=== PATIENT | male | born 1960 | race Caucasian/White ===

== ENCOUNTER → 2017-03-11 | Outpatient (CLI) | payer BC ==
--- NOTE | 2017-03-11 15:52 | RAD ---
Indication hemoptysis. PA and lateral views of the chest were obtained. No prior imaging is available. The heart and pulmonary vessels appear normal. There is slight blunting of the right costophrenic angle which may reflect scar or tiny pleural effusion. There is no consolidated pneumonia. An acute finding in the chest is not apparent. Mild degenerative changes are seen in the thoracic spine IMPRESSION: No acute finding seen in the chest
== END | disposition home or self-care (01) ==
LOC: RAD 15:26
PROVIDERS: ATTEND Family Medicine
DX: R04.2 Hemoptysis (principal)
CPT/HCPCS: 71020

== ENCOUNTER 2019-01-12 09:55 | Inpatient (IN) | payer BC ==
[~2019-01-12] VITALS: Ht 182.9 cm; Wt 106.1 kg
[2019-01-12 10:27] LABS: BASO % 1 % (0-3); EOS # 0.1 x10^3/uL (0.0-0.7); EOS % 1 % (0-3); HEMOGLOBIN 16.3 g/dL (13.0-17.5); LYMPH # 1.8 x10^3/uL (1.0-4.8); LYMPH % 24 % (24-48); MEAN CORPUSCULAR HEMOGLOBIN 31 pg (25-35); MEAN CORPUSCULAR HGB CONC 34 g/dL (31-37); MEAN CORPUSCULAR VOLUME 91 fL (79-100); MONO # 0.7 x10^3/uL (0.0-1.1); MONO % 9 % (0-9); NEUT # 4.9 x10^3uL (1.8-7.7); NEUT % 66 % (31-73); PLATELET COUNT 256 x10^3/uL (140-400); RED BLOOD COUNT 5.27 x10^6/uL (4.30-5.70); RED CELL DISTRIBUTION WIDTH 13.7 % (11.5-14.5); WHITE BLOOD COUNT 7.5 x10^3/uL (4.0-11.0)
[2019-01-12 10:41] LABS: CALCIUM 8.8 mg/dL (8.5-10.1); CREATININE 1.2 mg/dL (0.7-1.3); GFR 62.6; POTASSIUM 4.3 mmol/L (3.5-5.1)
[2019-01-12 10:47] LABS: ALBUMIN 3.4 g/dL (3.4-5.0); ALBUMIN/GLOBULIN RATIO 0.9 (1.0-1.7); TOTAL BILIRUBIN 0.4 mg/dL (0.2-1.0); TOTAL PROTEIN 7.3 g/dL (6.4-8.2)
--- NOTE | 2019-01-12 10:53 | RAD ---
EXAM: Chest, 2 views. HISTORY: Chest pain. COMPARISON: 09/04/2018 FINDINGS: 2 views the chest are obtained. There is no infiltrate, pleural effusion or pneumothorax. The heart is normal in size. IMPRESSION: No acute pulmonary finding. Electronically signed by: Diamond Carmona MD (01/12/2019 10:50 AM) [facility]
--- NOTE | 2019-01-12 11:16 | PHYS DOC ---
Past Medical History Past Medical History: Diabetes-Type II Past Surgical History: Other Additional Past Surgical Histo: EMPYEMA Additional Information: 1.5 PPD CIGARS Alcohol Use: None Drug Use: None Adult General Chief Complaint Chief Complaint: CHEST PAIN [facility] HPI Patient is a 58 year old male who presents with this morning came from work at 0530. Patient states about 645 this morning he ate 3 aches, aspirin, one half pound lutz and then went to lay down flat to go to sleep. Patient states that' s when his chest pain began. Patient states he took for full aspirins 325 mg and drink Sprite and began burping which helped his pain. Patient states he began becoming slightly nauseous to drink another Sprite and more and he states the pain went away. Patient is currently pain free and has no symptoms. Review of Systems Review of Systems Constitutional: Denies fever or chills [] Eyes: Denies change in visual acuity, redness, or eye pain [] HENT: Denies nasal congestion or sore throat [] Respiratory: Denies cough or shortness of breath [] Cardiovascular: No additional information not addressed in HPI [] GI: Denies abdominal pain, nausea, vomiting, bloody stools or diarrhea [] : Denies dysuria or hematuria [] Musculoskeletal: Denies back pain or joint pain [] Integument: Denies rash or skin lesions [] Neurologic: Denies headache, focal weakness or sensory changes [] Endocrine: Denies polyuria or polydipsia [] All other systems were reviewed and found to be within normal limits, except as documented in this note. Allergies Allergies Allergies Coded Allergies Type Severity Reaction Last Updated Verified Penicillins Allergy Intermediate 01/12/19 Yes Physical Exam Physical Exam Constitutional: Well developed, well nourished, no acute distress, non-toxic appearance. [] HENT: Normocephalic, atraumatic, bilateral external ears normal, oropharynx moist, no oral exudates, nose normal. [] Eyes: PERRLA, EOMI, conjunctiva normal, no discharge. [] Neck: Normal range of motion, no tenderness, supple, no stridor. [] Cardiovascular:Heart rate regular rhythm, no murmur [] Lungs & Thorax: Bilateral breath sounds clear to auscultation [] Abdomen: Bowel sounds normal, soft, no tenderness, no masses, no pulsatile masses. [] Skin: Warm, dry, no erythema, no rash. [] Back: No tenderness, no CVA tenderness. [] Extremities: No tenderness, no cyanosis, no clubbing, ROM intact, no edema. [] Neurologic: Alert and oriented X 3, normal motor function, normal sensory function, no focal deficits noted. [] Psychologic: Affect normal, judgement normal, mood normal. [] Current Patient Data Vital Signs Vital Signs Date Time Temp Pulse Resp B/P (MAP) Pulse Ox O2 Delivery O2 Flow Rate FiO2 01/12/19 11:36 68 17 134/85 (101) 95 Room Air 01/12/19 10:11 98.0 98.0 Lab Values Laboratory Tests Test 01/12/19 10:20 White Blood Count 7.5 x10^3/uL (4.0-11.0) Red Blood Count 5.27 x10^6/uL (4.30-5.70) Hemoglobin 16.3 g/dL (13.0-17.5) Hematocrit 48.0 % (39.0-53.0) Mean Corpuscular Volume 91 fL (79-100) Mean Corpuscular Hemoglobin 31 pg (25-35) Mean Corpuscular Hemoglobin Concent 34 g/dL (31-37) Red Cell Distribution Width 13.7 % (11.5-14.5) Platelet Count 256 x10^3/uL (140-400) Neutrophils (%) (Auto) 66 % (31-73) Lymphocytes (%) (Auto) 24 % (24-48) Monocytes (%) (Auto) 9 % (0-9) Eosinophils (%) (Auto) 1 % (0-3) Basophils (%) (Auto) 1 % (0-3) Neutrophils # (Auto) 4.9 x10^3uL (1.8-7.7) Lymphocytes # (Auto) 1.8 x10^3/uL (1.0-4.8) Monocytes # (Auto) 0.7 x10^3/uL (0.0-1.1) Eosinophils # (Auto) 0.1 x10^3/uL (0.0-0.7) Basophils # (Auto) 0.0 x10^3/uL (0.0-0.2) Sodium Level 139 mmol/L (136-145) Potassium Level 4.3 mmol/L (3.5-5.1) Chloride Level 100 mmol/L (98-107) Carbon Dioxide Level 26 mmol/L (21-32) Anion Gap 13 (6-14) Blood Urea Nitrogen 17 mg/dL (8-26) Creatinine 1.2 mg/dL (0.7-1.3) Estimated GFR (Cockcroft-Gault) 62.6 BUN/Creatinine Ratio 14 (6-20) Glucose Level 316 mg/dL (70-99) H Calcium Level 8.8 mg/dL (8.5-10.1) Total Bilirubin 0.4 mg/dL (0.2-1.0) Aspartate Amino Transferase (AST) 16 U/L (15-37) Alanine Aminotransferase (ALT) 37 U/L (16-63) Alkaline Phosphatase 94 U/L (46-116) Troponin I Quantitative 0.185 ng/mL (0.000-0.055) ZU-Vvm-W-Type Natriuretic Peptide 56 pg/mL (0-124) Total Protein 7.3 g/dL (6.4-8.2) Albumin 3.4 g/dL (3.4-5.0) Albumin/Globulin Ratio 0.9 (1.0-1.7) L Lipase 82 U/L (73-393) Laboratory Tests 01/12/19 10:20 Laboratory Tests 01/12/19 10:20 EKG EKG Sinus rhythm and no STEMI. Patient has deep past T waves in 4,5, 6 lead. Interpretation Time: [address] Paredes Radiology/Procedures Radiology/Procedures Chest xray Impressions: [facility] [address] [place] [address] IMAGING REPORT Signed PATIENT: JUSTEN LANTIGUA ACCOUNT: [id number] : 1960 LOCATION: ER AGE: 58 SEX: M EXAM STATUS: REG ER ORD. PHYSICIAN: MARGARITO MARQUEZ APRN REASON: chest pain PROCEDURE: CHEST PA & LATERAL EXAM: Chest, 2 views. HISTORY: Chest pain. COMPARISON: 09/04/2018 FINDINGS: 2 views the chest are obtained. There is no infiltrate, pleural effusion or pneumothorax. The heart is normal in size. IMPRESSION: No acute pulmonary finding. Electronically signed by: Diamond Allen MD (01/12/2019 10:50 AM) [facility] DICTATED and SIGNED BY: DIAMOND ALLEN MD DATE: 01/12/19 1049 Course & Med Decision Making Course & Med Decision Making Patient is a 58 year old male who presents with this morning came from work at 0530. Patient states about 645 this morning he ate 3 aches, aspirin, one half pound lutz and then went to lay down flat to go to sleep. Patient states that' s when his chest pain began. Patient states he took for full aspirins 325 mg and drink Sprite and began burping which helped his pain. Patient states he began becoming slightly nauseous to drink another Sprite and more and he states the pain went away. Patient is currently pain free and has no symptoms. EKG shows sinus rhythm and no STEMI but he does have inverted T waves in lead 4 , 5 and 6. Patient's history is a empyema 20 years ago, high cholesterol, diabetic. Patient states he's also had a blood clot and his leg before of which he's had constant bilateral edema and his pedal's and ankles since then and that was 6 years ago. I would say 2+ edema bilateral pedal edema. Alert and oriented. Skin pink warm and dry. Mucous membranes are moist. Patient is having no chest pain, nausea, vomiting, dizziness, shortness of air. He states his smokes half pack of cigarette was day. Lungs are clear to auscultation in all lobes. Heart rate is regular. Patient does have an elevated troponin of 0.185. Abdomen is soft and nontender. Patient is ambulatory with a steady gait. 1110: I have spoken to a family nurse practitioner of Dr. Lyle states week ago where the patient and she states to keep the patient nothing by mouth for a simple procedure later today and she states they will come and see the patient. I have also spoken to Dr England and Patient will be admitted for chest pain and elevated troponin. Dragon Disclaimer Dragon Disclaimer This electronic medical record was generated, in whole or in part, using a voice recognition dictation system. Departure Departure Impression: Primary Impression: Chest pain Disposition: ADMITTED INPATIENT Admitting Physician: Jose Ramon Aguila Condition: STABLE Referrals: Ute AGUILA MD (PCP) Problem Qualifiers Primary Impression: Chest pain Chest pain type: unspecified Qualified Codes: R07.9 - Chest pain, unspecified MARGARITO MARQUEZ ROUTE INSPECTOR Jan 12, 2019 11:15
[2019-01-12] MEDS ORDERED: IV NORMAL SALINE 1000ML BAG 1,000 ML IV SCH (11:41)
[2019-01-12] MEDS ORDERED: ONDANSETRON PF 4 MG/2 ML VIAL. IV PRN (11:45)
[2019-01-12] MEDS ORDERED: NITROGLYCERIN SUBLINGUAL 0.4 MG BOTTLE OF 25. SL PRN ×2 (11:45→18:15)
[2019-01-12] MEDS ORDERED: fentaNYL PF VIAL 100 MCG/2 ML VIAL IV PRN (11:45)
[2019-01-12 12:12] LABS: PROTHROMBIN TIME PATIENT 12.8 SEC (11.7-14.0)
[2019-01-12 12:15] LABS: BILIRUBIN,URINE NEGATIVE (NEG); CLARITY,URINE CLOUDY; COLOR,URINE YELLOW; NITRITE,URINE NEGATIVE (NEG); PROTEIN,URINE NEGATIVE (NEG-TRACE); UROBILINOGEN,URINE 0.2 mg/dL (0.2 mg/dL)
[2019-01-12 12:19] LABS: BACTERIA,URINE FEW /HPF (0-FEW); RBC,URINE OCC /HPF (0-2); SQUAMOUS EPITHELIAL CELL,UR FEW /LPF; WBC,URINE OCC /HPF (0-4)
[2019-01-12 12:33] LABS: BARBITURATES NEG (NEG); BENZODIAZEPINES NEG (NEG); CANNABINOIDS NEG (NEG); COCAINE NEG (NEG); METHADONE NEG (NEG); OPIATES NEG (NEG); PHENCYCLIDINE NEG (NEG)
[2019-01-12 12:34] LABS: AMPHETAMINE/METHAMPHETAMINE NEG (NEG)
--- NOTE | 2019-01-12 13:02 | PDOC2 ---
TOMMIEIRVING GAMBOA JOSELINE 01/12/19 1302: CARDIAC CONSULT DATE OF CONSULT Date of Consult DATE: 01/12/19 TIME: 12:54 REASON FOR CONSULT Reason for Consult: Chest pain REFERRING PHYSICIAN Referring Physician: Armida Cochran APRN SOURCE Source: Chart review, Patient HISTORY OF PRESENT ILLNESS HISTORY OF PRESENT ILLNESS This is a 58 yo male who presented secondary to chest pain. Patient works on a newspaper route. Came home this morning and had a large breakfast around 6:15. Around 7:30, began have sharp pain in his central chest radiating upward. [place] like GERD; had a Sprite and belched a couple of times, which seemed to improved the pain. Took an ASA and laid down. Pain returned so he had another Sprite and felt slightly better. Went ahead and took another full ASA. [place] slightly nauseated and also noticed some left shoulder pain. Although he thought this was GERD, he decided to come to the ED for further evaluation and treatment as he had never had GERD like this before. Pain resolved following third full ASA. Troponin noted to be mildly elevated upon arrival, which prompted this consult. PAST MEDICAL HISTORY Cardiovascular: Hyperlipidemia Pulmonary: Pneumonia, Other (empyema ) CENTRAL NERVOUS SYSTEM: Other (no pertinent hx) GI: GERD Heme/Onc: Other (DVT) Hepatobiliary: No pertinent hx Psych: No pertinent hx Musculoskeletal: Osteoarthritis Rheumatologic: No pertinent hx Infectious disease: No pertinent hx ENT: No pertinent hx Renal/: No pertinent hx Endocrine: Diabetes Dermatology: No pertinent hx PAST SURGICAL HISTORY Past Surgical History: Tonsillectomy, Other FAMILY HISTORY Family History: Diabetes, Other (AFIB) SOCIAL HISTORY Smoke: 1 pack per day ALCOHOL: none Drugs: None Lives: with Family ALLERGIES ALLERGIES: Coded Allergies: Penicillins (Verified Allergy, Intermediate, 01/12/19) ROS Review of System 14 point ROS conducted with pertinent positives noted above in HPI. PHYSICAL EXAM General: Alert, Oriented X3, Cooperative, No acute distress HEENT: Atraumatic, Mucous membr. moist/pink Lungs: Clear to auscultation, Normal air movement Heart: Regular rate, Normal S1, Normal S2 Abdomen: Soft, No tenderness Extremities: No edema, Normal pulses Neuro: Normal speech, Sensation intact Psych/Mental Status: Mental status NL, Mood NL MUSCULOSKELETAL: No deformity VITALS VITALS Vital Signs Date Time Temp Pulse Resp B/P (MAP) Pulse Ox O2 Delivery O2 Flow Rate FiO2 01/12/19 11:36 68 17 134/85 (101) 95 Room Air 01/12/19 10:11 98.0 98.0 LABS Lab: Laboratory Tests Test 01/12/19 10:20 01/12/19 12:00 01/12/19 12:03 White Blood Count 7.5 x10^3/uL (4.0-11.0) Red Blood Count 5.27 x10^6/uL (4.30-5.70) Hemoglobin 16.3 g/dL (13.0-17.5) Hematocrit 48.0 % (39.0-53.0) Mean Corpuscular Volume 91 fL (79-100) Mean Corpuscular Hemoglobin 31 pg (25-35) Mean Corpuscular Hemoglobin Concent 34 g/dL (31-37) Red Cell Distribution Width 13.7 % (11.5-14.5) Platelet Count 256 x10^3/uL (140-400) Neutrophils (%) (Auto) 66 % (31-73) Lymphocytes (%) (Auto) 24 % (24-48) Monocytes (%) (Auto) 9 % (0-9) Eosinophils (%) (Auto) 1 % (0-3) Basophils (%) (Auto) 1 % (0-3) Neutrophils # (Auto) 4.9 x10^3uL (1.8-7.7) Lymphocytes # (Auto) 1.8 x10^3/uL (1.0-4.8) Monocytes # (Auto) 0.7 x10^3/uL (0.0-1.1) Eosinophils # (Auto) 0.1 x10^3/uL (0.0-0.7) Basophils # (Auto) 0.0 x10^3/uL (0.0-0.2) Sodium Level 139 mmol/L (136-145) Potassium Level 4.3 mmol/L (3.5-5.1) Chloride Level 100 mmol/L (98-107) Carbon Dioxide Level 26 mmol/L (21-32) Anion Gap 13 (6-14) Blood Urea Nitrogen 17 mg/dL (8-26) Creatinine 1.2 mg/dL (0.7-1.3) Estimated GFR (Cockcroft-Gault) 62.6 BUN/Creatinine Ratio 14 (6-20) Glucose Level 316 mg/dL (70-99) Calcium Level 8.8 mg/dL (8.5-10.1) Total Bilirubin 0.4 mg/dL (0.2-1.0) Aspartate Amino Transf (AST/SGOT) 16 U/L (15-37) Alanine Aminotransferase (ALT/SGPT) 37 U/L (16-63) Alkaline Phosphatase 94 U/L (46-116) Troponin I Quantitative 0.185 ng/mL (0.000-0.055) WY-Xoe-R-Type Natriuretic Peptide 56 pg/mL (0-124) Total Protein 7.3 g/dL (6.4-8.2) Albumin 3.4 g/dL (3.4-5.0) Albumin/Globulin Ratio 0.9 (1.0-1.7) Lipase 82 U/L (73-393) Prothrombin Time 12.8 SEC (11.7-14.0) Prothromb Time International Ratio 1.0 (0.8-1.1) Urine Collection Type Unknown Urine Color Yellow Urine Clarity Cloudy Urine pH 5.0 Urine Specific [place] 1.015 Urine Protein Negative mg/dL (NEG-TRACE) Urine Glucose (UA) >=1000 mg/dL (NEG) Urine Ketones (Stick) Negative mg/dL (NEG) Urine Blood Negative (NEG) Urine Nitrite Negative (NEG) Urine Bilirubin Negative (NEG) Urine Urobilinogen Dipstick 0.2 mg/dL (0.2 mg/dL) Urine Leukocyte Esterase Negative (NEG) Urine RBC Occ /HPF (0-2) Urine WBC Occ /HPF (0-4) Urine Squamous Epithelial Cells Few /LPF Urine Bacteria Few /HPF (0-FEW) Urine Mucus Slight /LPF Urine Opiates Screen Neg (NEG) Urine Methadone Screen Neg (NEG) Urine Barbiturates Neg (NEG) Urine Phencyclidine Screen Neg (NEG) Urine Amphetamine/Methamphetamine Neg (NEG) Urine Benzodiazepines Screen Neg (NEG) Urine Cocaine Screen Neg (NEG) Urine Cannabinoids Screen Neg (NEG) Urine Ethyl Alcohol Neg (NEG) ASSESSMENT/PLAN ASSESSMENT/PLAN 1. Chest pain, mixed features 2. NSTEMI; initial trop 0.185. EKG notable for t-wave inversion, which patient reports this as chronic 3. Diabetes, II; as per PCP 4. Hyperlipidemia 5. Tobaccoism; discussed/encouraged cessation 6. H/o DVT Recommendations lipid panel Echo to assess LV systolic function Add ASA, low-dose BB Trend trop If further elevation in troponin is noted, recommend cardiac cath with possible PCI. R/b/a discussed with patient and he is agreeable. DEVIN HOUSE MD 01/12/19 1636: CARDIAC CONSULT ASSESSMENT/PLAN ASSESSMENT/PLAN Patient seen and examined. Agree with DIAGNOSTIC ASSISTANT's assessment and plan. Chest pain with mixed features but troponin level slightly elevated consistent with non-STEMI Plan for cardiac catheterization for definitive evaluation secondary to his multiple cardiovascular risk factors Importance of smoking cessation emphasized Thank you for your consultation IRVING REILLY APRN Jan 12, 2019 13:02 DEVIN HOUSE MD Jan 12, 2019 16:36
[2019-01-12] MEDS ORDERED: ENOXAPARIN 40 MG/0.4 ML SYRINGE. SQ SCH (15:00)
--- NOTE | 2019-01-12 15:09 | HP ---
ADMIT DATE: 01/12/2019 CHIEF COMPLAINT: Chest pain. HISTORY OF PRESENT ILLNESS AND HOSPITAL COURSE: This patient is a 58-year-old male with a history of uncontrolled diabetes, high cholesterol and hypertension. States that on the morning of admission, he had a large breakfast including multiple pieces of Friend and laid down and felt he was having heartburn and chest pain. He drank some 7up to help with gaseous pains in his stomach and this improved his pain a little bit. He took 2 aspirin because his pain continued and again drank some 7up. He took 2 more aspirin soon after that and called 911 due to progressive and continued chest pains. During driving to the hospital on ambulance, the patient's pain completely abated and the patient was asymptomatic during ER evaluation. ER evaluation showed slightly increased troponins and changes in EKG consistent with flipped T waves in the lateral leads. Due to these findings, plans for admission were made. During early admission, prior to the patient getting to the floor, second troponin was done and showed increase in troponin and Cardiology was consulted and elected to take the patient to cardiac cath, which is pending at the time of this dictation. PAST MEDICAL HISTORY: Significant for: 1. Hypertension. 2. High cholesterol. 3. COPD. 4. Type 2 diabetes, out of control with last hemoglobin A1c in 03/2018 of 11.4 and in 01/2017 of 10. 5. The patient also had a history of DVT in 2013. PAST SURGICAL HISTORY: Significant for tonsillectomy as a child and decortication for empyema in 1997. FAMILY HISTORY: His mother is alive with heart disease, sarcoidosis, AFib and breast cancer. His father is with lung cancer, hypertension, hypothyroidism. His maternal grandmother with colon cancer. He had a maternal grandfather who with an [place]. SOCIAL HISTORY: He is a current smoker, smokes mostly cigars on a daily basis, but also smokes up to 11 cigarettes per day. The patient is , has 3 sons and grandchildren. He lives with his spouse. He is a truck driver heavy. ALLERGIES: THE PATIENT EXHIBITS ALLERGIES TO PENICILLIN AND CLINDAMYCIN. REVIEW OF SYSTEMS: Prior to this episode of chest pain were benign. He had no nausea, vomiting. No chest congestion, cough, recent weight loss or weight gain, night sweats or shortness of breath. Current chest pains were substernal without radiation, diaphoresis, nausea, vomiting or shortness of breath. PHYSICAL EXAMINATION: GENERAL: This is a well-nourished, well-developed male, in no apparent distress. On my exam, he is alert and oriented x 3. HEENT: Reveals poor dentition. NECK: Supple without JVD or bruits. CARDIAC: Regular rate and rhythm. LUNGS: Clear. ABDOMEN: Soft, nontender without masses. EXTREMITIES: 2+ pulses without significant edema. NEUROLOGIC: Entirely intact. ASSESSMENT: 1. Non-ST elevated myocardial infarction. 2. Type 2 diabetes, out of control. PLAN: To proceed with admission to the hospital and Cardiology consultation, going directly to cardiac catheterization and continued medical management. ZAY SALAS MD DR: SUNI/amy JOB#: [id number] / [id number]
[2019-01-12] MEDS ORDERED: IODIXANOL 320 MG/ML 100 ML VIAL. ONE ×2 (16:09→17:04)
[2019-01-12] MEDS ORDERED: LIDOCAINE 1% PF 2 ML VIAL. ONE (16:09)
--- NOTE | 2019-01-12 16:09 | EKG ---
[facility] [address] [place] [address] Test Date: 2019-01-12 Test Time: 10:10:25 Pat Name: JUSTEN LANTIGUA Department: Room: 205 1 Gender: M Lacquer Machine Feeder: : 1960 Requested By: MARGARITO MARQUEZ Order Number: [id number] Reading MD: Ed Franco MD Measurements Intervals [place] Rate: 85 P: 25 IA: 164 QRS: -25 QRSD: 88 T: -142 QT: 386 QTc: 460 Interpretive Statements SINUS RHYTHM LATERAL TWI Electronically Signed On 01-13-2019 7:02:56 LEACH RUNNER by Ed Franco MD
[2019-01-12 16:19] VITALS: BP 132/90
[2019-01-12] MEDS ORDERED: MIDAZOLAM HCL/PF 2 MG/2 ML VIAL. ONE (16:27)
[2019-01-12] MEDS ORDERED: VERAPAMIL 5 MG/2 ML VIAL. ONE (16:27)
[2019-01-12] MEDS ORDERED: fentaNYL PF VIAL 100 MCG/2 ML VIAL ONE (16:27)
[2019-01-12] MEDS ORDERED: HEPARIN for IV BOLUS 10,000 UNIT/10 ML VIAL. ONE (16:27)
[2019-01-12] MEDS ORDERED: NITROGLYCERIN 200 MCG/2 ML SYRINGE FOR CATH/VASC LAB. ONE (16:28)
[2019-01-12] MEDS ORDERED: GLIM4TAB2 PO (16:29)
[2019-01-12] MEDS ORDERED: ATORVASTATIN CA80 MG PO (16:29)
[2019-01-12] MEDS ORDERED: ASPI-612 PO (16:29)
[2019-01-12] MEDS: INSULIN LISPRO 300 UNITS/3 ML INSULN.PEN. SQ SCH ×2 (16:30→20:53)
[2019-01-12] MEDS ORDERED: BIVALIRUDIN 250 MG VIAL. IV ONE ×2 (16:55→17:15)
--- NOTE | 2019-01-12 16:58 | NUR ---
The patient, JUSTEN LANTIGUA, 58 y/o, M admitted by ZAY SALAS MD, was given written information regarding hospital policies, unit procedures and contact persons. Valuables were checked and patient is currently off the unit for cardiac cath.
[2019-01-12] MEDS ORDERED: VERAPAMIL 5 MG/2 ML VIAL. IART ONE (17:15)
[2019-01-12] MEDS ORDERED: HEPARIN for IV BOLUS 10,000 UNIT/10 ML VIAL. IART ONE (17:15)
[2019-01-12] MEDS ORDERED: NITROGLYCERIN 200 MCG/2 ML SYRINGE FOR CATH/VASC LAB. IART ONE (17:15)
[2019-01-12] MEDS ORDERED: IODIXANOL 320 MG/ML 100 ML VIAL. IART ONE (17:15)
[2019-01-12] MEDS ORDERED: LIDOCAINE 1% PF 2 ML VIAL. INJ ONE (17:15)
[2019-01-12] MEDS ORDERED: MIDAZOLAM HCL/PF 2 MG/2 ML VIAL. IV ONE (17:15)
[2019-01-12] MEDS ORDERED: fentaNYL PF VIAL 100 MCG/2 ML VIAL IV ONE (17:15)
[2019-01-12] MEDS ORDERED: PRASUGREL 10 MG TABLET. ONE (17:17)
[2019-01-12] MEDS ORDERED: PRASUGREL 10 MG TABLET. PO ONE (17:30)
[2019-01-12 17:55] VITALS: BP 115/83
--- NOTE | 2019-01-12 18:02 | CARD ---
MR#: [id number] Date of Study: 01/12/2019 Ordering Physician: DEVIN HOUSE, Referring Physician: ZAY SALAS, Tech: RT Felix (Misha) ALEJANDRO APPROVED REPORT Technologist: RT Felix (R) ALEJANDRO Nurse: Julia Carter R.N. Procedure(s) performed: 1. Left heart catheterization, selective coronary angiography and left ventr iculography via right transradial approach 2. Successful PCI/drug eluting stent placement to the dominant left circumflex artery Moderate sedation: 60 mins INDICATION The indication(s) include : non-STEMI . PROCEDURE NARRATIVE After explaining the risks, benefits and alternative options, informed consent was obtained from whitney ent. Patient was brought to the cardiac Python Django Developer and right wrist was prepped and draped in the usual fashion after confirming a positive modified Marcelino's test. Arterial access was obtained in the righ t radial artery and a 6 Namibian sheath was inserted. 6 Namibian Blake catheter was used to perform jennifer ective angiography of the left and right coronary arteries. 6 [place]ibian pigtail catheter was used to pe rform left ventriculography. The following findings were noted. FINDINGS 1. Hemodynamics: Left ventricular end-diastolic pressure of 24 mmHg. No pullback gradient across th e aortic valve. 2. Left ventriculography: Distal inferior wall hypokinesis with ejection fraction estimated at 45-50 %. No significant mitral regurgitation seen. 3. Coronary angiography: a. The left main coronary artery arose from the left sinus of Valsalva, gave rise to the left anteri or descending and left circumflex arteries and did not show any significant stenosis. b. The left anterior descending artery showed 30% stenosis in the midsegment. c. The left circumflex artery was a large and dominant vessel that showed 90-95% stenosis involving the midsegment. d. The right coronary artery was a small and nondominant vessel arising from the right sinus of Vals palacios that showed 90% stenosis in the proximal segment followed by chronic total occlusion in the mids egment with faint distal reconstitution from bridging and [id number] collaterals. INTERVENTION The left main coronary artery was engaged with a 6 Namibian XB 3.5 guide catheter and the stenosis in t he midsegment of the left circumflex artery was crossed with a 0.014 inch Wishberg Pro water guidewire. This was predilated with a 3.5 x 15 mm trek balloon following which this was successfully treated wit h a 4.0 x 18 mm Xience alpine drug-eluting stent. The stent struts were crossed into the obtuse arlette nal branch with another Pro water guidewire. However several attempts to advance a 3.5 mm noncomplian t balloon to dilate the stent struts were unsuccessful due to acute angulated takeoff of the obtuse m arginal branch. Since there was ANTELMO-3 flow into the obtuse marginal branch without any significant p laque shift we decided to abandon any further attempts at stent strut dilation. Completion angiograph y showed resolution of the stenosis to 0% with ANTELMO-3 distal flow. Patient tolerated the procedure we ll. Hemostasis was achieved using TR band. There were no immediate complications. Conclusion 1. Two-vessel coronary artery disease 2. Successful PCI/drug eluting stent placement to large and dominant left circumflex artery 3. Distal inferior wall hypokinesis with ejection fraction estimated at 45-50%. Recommendations 1. Aspirin 325 mg daily 2. Prasugrel 10 mg daily for preferably one year 3. Cardiovascular risk factor modification Signed by : Devin House, Electronically Approved : 01/12/2019 18:02:02
--- NOTE | 2019-01-12 18:03 | PDOC ---
MODERATE SEDATION ASSESSMENT RISKS/ALTERNATIVES Risks/Alternatives Risks and alternatives of this type of sedation and procedure discussed with: RISK/ALTERNATIVES: Patient H & P ON CHART H & P H & P on chart and reviewed for co-morbid conditions and appropriate labs. H&P ON CHART: Yes STATUS PREG STATUS ASSESSED: N/A MEDS/ALLERGIES REVIEWED Meds/Allergies Reviewed Medications and Allergies including time and route of recently administered narcotics and sedatives. MEDS/ALLERGIES REVIEWED: Yes ASA RATING ASA RATING: II AIRWAY ASSESSMENT Airway Assessment Airway patency, oral function limitations, presence of caps, crowns, dentures, partials, and ability to extend neck assessed. AIRWAY ASSESSMENT: Yes MALLAMPATI SCORE MALLAMPATI SCORE: II PRE-SEDATION ASSESSMENT PRE-SEDATION ASSESSMENT: Yes DEVIN HOUSE MD Jan 12, 2019 18:03
[2019-01-12] MEDS ORDERED: ACETAMINOPHEN 325 MG TABLET. PO PRN (18:15)
[2019-01-12] MEDS: IV 1/2 NORMAL SALINE 1,000 ML IV SCH (18:21)
[2019-01-12 19:25] VITALS: BP 141/84
[2019-01-12] MEDS: METOPROLOL TART IMMED RELEASE 25 MG TABLET. PO SCH (20:14)
[2019-01-12] MEDS ORDERED: ATORVASTATIN CALCIUM 40 MG TABLET. PO SCH (21:00)
--- NOTE | 2019-01-12 23:05 | NUR ---
RN removed the 13cc of air and then removed the bracelet from the cardiac cath done on right radial. No signs of bleeding were noted at that time and patient tolerated it well. RN will continue to monitor closely.
[2019-01-12 23:20] VITALS: BP 110/58
[2019-01-13 03:15] VITALS: BP 148/81
[2019-01-13 04:28] LABS: BASO % 0 % (0-3); EOS # 0.1 x10^3/uL (0.0-0.7); EOS % 2 % (0-3); HEMATOCRIT 46.8 % (39.0-53.0); HEMOGLOBIN 15.5 g/dL (13.0-17.5); LYMPH # 2.4 x10^3/uL (1.0-4.8); LYMPH % 29 % (24-48); MEAN CORPUSCULAR HEMOGLOBIN 30 pg (25-35); MEAN CORPUSCULAR HGB CONC 33 g/dL (31-37); MEAN CORPUSCULAR VOLUME 92 fL (79-100); MONO # 0.9 x10^3/uL (0.0-1.1); MONO % 11 % (0-9); NEUT # 4.8 x10^3uL (1.8-7.7); NEUT % 58 % (31-73); PLATELET COUNT 246 x10^3/uL (140-400); RED BLOOD COUNT 5.11 x10^6/uL (4.30-5.70); RED CELL DISTRIBUTION WIDTH 13.7 % (11.5-14.5); WHITE BLOOD COUNT 8.3 x10^3/uL (4.0-11.0)
[2019-01-13 04:42] LABS: CALCIUM 8.4 mg/dL (8.5-10.1); GFR 77.3
[2019-01-13 04:47] LABS: CHOLESTEROL/HDL RATIO 4.9
[2019-01-13 07:00] VITALS: BP 141/89
[2019-01-13] MEDS: INSULIN LISPRO 300 UNITS/3 ML INSULN.PEN. SQ SCH ×2 (07:30→12:18)
[2019-01-13] MEDS ORDERED: ASPIRIN ENTERIC COATED 81 MG TABLET.DR. PO SCH (08:00)
[2019-01-13] MEDS ORDERED: ASPIRIN ENTERIC COATED 325 MG TABLET.DR. PO SCH (08:00)
[2019-01-13] MEDS ORDERED: PRASUGREL 10 MG TABLET. PO SCH (08:00)
--- NOTE | 2019-01-13 09:54 | CARD ---
MR#: [id number] Date of Study: 01/13/2019 Ordering Physician: IRVING REILLY, Referring Physician: ZAY SALAS Tech: Rosalba Cohen [facility] APPROVED REPORT EXAM: Two-dimensional and M-mode echocardiogram with Doppler and color Doppler. Other Information Quality : AverageHR: 76bpm Rhythm : NSR INDICATION Chest Pain 2D DIMENSIONS RVDd3.1 (2.9-3.5cm)Left Atrium(2D)3.5 (1.6-4.0cm) IVSd1.3 (0.7-1.1cm)Aortic Root(2D)3.7 (2.0-3.7cm) LVDd4.5 (3.9-5.9cm)LVOT Diameter2.6 (1.8-2.4cm) PWd1.1 (0.7-1.1cm)LVDs3.1 (2.5-4.0cm) FS (%) 29.5 %SV51.2 ml LVEF(%)56.7 (>50%) M-Mode DIMENSIONS Left Atrium(MM)4.13 (2.5-4.0cm)Aortic Root3.78 (2.2-3.7cm) Aortic Valve AoV Peak Martin.123.1cm/sAoV VTI27.0cm AO Peak GR.6.1mmHgLVOT Peak Martin.94.2cm/s AO Mean GR.3mmHgAVA (VMAX)4.00cm2 JAJA (VTI)3.80cm2 Mitral Valve MV E Facoarsk46.9cm/sMV DECEL AVOC031tb MV A Nxgrjuzd56.5cm/sE/A Ratio1.8 Pulmonary Valve PV Peak Thnchhxz06.1cm/s LEFT VENTRICLE The left ventricle is normal size. There is mild concentric left ventricular hypertrophy. The left ve ntricular systolic function is normal. The Ejection Fraction is 55-60%. There is normal LV segmental wall motion. Transmitral Doppler flow pattern is Grade II-pseudonormal filling dynamics. RIGHT VENTRICLE The right ventricle is normal size. There is normal right ventricular wall thickness. The right ventr icular systolic function is normal. ATRIA The left atrium size is normal. The right atrium size is normal. The interatrial septum is intact wit h no evidence for an atrial septal defect or patent foramen ovale as noted on 2-D or Doppler imaging. AORTIC VALVE The aortic valve is normal in structure and function. The aortic valve is trileaflet. Doppler and Col or Flow revealed no significant aortic regurgitation. There is no significant aortic valvular stenosi s. MITRAL VALVE The mitral valve is normal in structure and function. There is no evidence of mitral valve prolapse. There is no mitral valve stenosis. Doppler and Color Flow revealed no mitral valve regurgitation note d. TRICUSPID VALVE The tricuspid valve is normal in structure and function. Doppler and Color Flow revealed no tricuspid valve regurgitation noted. There is no tricuspid valve prolapse or vegetation. There is no tricuspid valve stenosis. PULMONIC VALVE The pulmonic valve is not well visualized. GREAT VESSELS The aortic root is mildly enlarged. The ascending aorta is Mildly dilated. The IVC is normal in size and collapses >50% with inspiration. PERICARDIAL EFFUSION There is no evidence of significant pericardial effusion. Critical Notification Critical Value: No <Conclusion> The left ventricular systolic function is normal. The Ejection Fraction is 55-60%. There is normal LV segmental wall motion. No significant valvular abnormalities. There is no evidence of significant pericardial effusion. Signed by : Saúl Paris, Electronically Approved : 01/13/2019 09:53:49
[2019-01-13] MEDS: METOPROLOL TART IMMED RELEASE 25 MG TABLET. PO SCH (10:09)
--- NOTE | 2019-01-13 10:56 | PDOC ---
JESSIE DAVIS PRODUCT DEVELOPMENT 01/13/19 1056: CARDIO Progress Notes Date and Time Date of Service 01/13/2019 Time of Evaluation 1040 Subjective Subjective: No Chest Pain, No shortness of breath, No Palpitations Vitals Vitals Vital Signs Date Time Temp Pulse Resp B/P (MAP) Pulse Ox O2 Delivery O2 Flow Rate FiO2 01/13/19 10:09 73 141/89 01/13/19 07:45 Room Air 01/13/19 07:00 97.8 16 97 97.8 01/12/19 17:55 2.0 Weight Weight [ ] Input and Output Intake and Output Intake and Output 01/13/19 07:00 Intake Total 650 ml Balance 650 ml Intake Oral 650 ml Laboratory Labs Laboratory Tests Test 01/12/19 12:00 01/12/19 12:03 01/12/19 18:16 01/12/19 20:34 Prothrombin Time 12.8 SEC (11.7-14.0) Prothromb Time International Ratio 1.0 (0.8-1.1) Troponin I Quantitative 0.376 ng/mL (0.000-0.055) Urine Collection Type Unknown Urine Color Yellow Urine Clarity Cloudy Urine pH 5.0 Urine Specific [place] 1.015 Urine Protein Negative mg/dL (NEG-TRACE) Urine Glucose (UA) >=1000 mg/dL (NEG) Urine Ketones (Stick) Negative mg/dL (NEG) Urine Blood Negative (NEG) Urine Nitrite Negative (NEG) Urine Bilirubin Negative (NEG) Urine Urobilinogen Dipstick 0.2 mg/dL (0.2 mg/dL) Urine Leukocyte Esterase Negative (NEG) Urine RBC Occ /HPF (0-2) Urine WBC Occ /HPF (0-4) Urine Squamous Epithelial Cells Few /LPF Urine Bacteria Few /HPF (0-FEW) Urine Mucus Slight /LPF Urine Opiates Screen Neg (NEG) Urine Methadone Screen Neg (NEG) Urine Barbiturates Neg (NEG) Urine Phencyclidine Screen Neg (NEG) Urine Amphetamine/Methamphetamine Neg (NEG) Urine Benzodiazepines Screen Neg (NEG) Urine Cocaine Screen Neg (NEG) Urine Cannabinoids Screen Neg (NEG) Urine Ethyl Alcohol Neg (NEG) Glucose (Fingerstick) 113 mg/dL (70-99) 215 mg/dL (70-99) Test 01/13/19 03:25 01/13/19 08:15 White Blood Count 8.3 x10^3/uL (4.0-11.0) Red Blood Count 5.11 x10^6/uL (4.30-5.70) Hemoglobin 15.5 g/dL (13.0-17.5) Hematocrit 46.8 % (39.0-53.0) Mean Corpuscular Volume 92 fL (79-100) Mean Corpuscular Hemoglobin 30 pg (25-35) Mean Corpuscular Hemoglobin Concent 33 g/dL (31-37) Red Cell Distribution Width 13.7 % (11.5-14.5) Platelet Count 246 x10^3/uL (140-400) Neutrophils (%) (Auto) 58 % (31-73) Lymphocytes (%) (Auto) 29 % (24-48) Monocytes (%) (Auto) 11 % (0-9) Eosinophils (%) (Auto) 2 % (0-3) Basophils (%) (Auto) 0 % (0-3) Neutrophils # (Auto) 4.8 x10^3uL (1.8-7.7) Lymphocytes # (Auto) 2.4 x10^3/uL (1.0-4.8) Monocytes # (Auto) 0.9 x10^3/uL (0.0-1.1) Eosinophils # (Auto) 0.1 x10^3/uL (0.0-0.7) Basophils # (Auto) 0.0 x10^3/uL (0.0-0.2) Sodium Level 141 mmol/L (136-145) Potassium Level 4.0 mmol/L (3.5-5.1) Chloride Level 105 mmol/L (98-107) Carbon Dioxide Level 25 mmol/L (21-32) Anion Gap 11 (6-14) Blood Urea Nitrogen 18 mg/dL (8-26) Creatinine 1.0 mg/dL (0.7-1.3) Estimated GFR (Cockcroft-Gault) 77.3 Glucose Level 200 mg/dL (70-99) Calcium Level 8.4 mg/dL (8.5-10.1) Triglycerides Level 175 mg/dL (0-150) Cholesterol Level 182 mg/dL (0-200) LDL Cholesterol, Calculated 110 mg/dL (0-100) VLDL Cholesterol, Calculated 35 mg/dL (0-40) Non-HDL Cholesterol Calculated 145 mg/dL (0-129) HDL Cholesterol 37 mg/dL (40-60) Cholesterol/HDL Ratio 4.9 Glucose (Fingerstick) 154 mg/dL (70-99) Physical Exam HEENT: Neck Supple W Full Motion Chest: Symmetric LUNGS: Clear to Auscultation Heart: S1S2, RRR (SR) Abdomen: Soft N/T Extremities: No Calf Tenderness Neurology: alert, oriented, follow commands Other Exams right srist arteriotomy site intact, no swelling or erythema, neurovascular status to right hand intact. Assessment Assessment 1. NSTEMI: PCI/JESENIA to LCx. EF and WM nml per TTE 2. DM2/HLP: per PCP 3. HTN: not on goal 4. Tobaccoism Recommendations 1. 325 ECASA and effient 2. High dose statin. Continue with metoprolol and will start on lisinopril. 3. Smoking cessation 4. Follow up in office in 4-5 weeks. Encouraged cardiac rehab DEVIN HOUSE MD 01/13/19 1421: CARDIO Progress Notes Assessment Assessment Patient seen and examined. Agree with DATA PROCESSING CONSULTANT's assessment and plan. s/p PCI/JESENIA to dominant LCx, presently chest pain-free. Continue dual antiplatelet therapy. 2-D echo showed normal LV systolic function. We will consider initiation of Jardiance as an outpatient. JESSIE DAVIS APRN Jan 13, 2019 10:56 DEVIN HOUSE MD Jan 13, 2019 14:21
[2019-01-13 11:00] VITALS: BP 132/80
[2019-01-13] MEDS ORDERED: LISINOPRIL 5 MG TABLET. PO SCH (11:30)
--- NOTE | 2019-01-13 11:46 | NUR ---
SS following for discharge planning. SS reviewed pt chart. Pt is from home with spouse and is currently on room air. No discharge needs noted at this time. SS will continue to follow for pending discharge needs.
[2019-01-13 12:15] VITALS: BP 132/80
[2019-01-13] MEDS: IV 1/2 NORMAL SALINE 1,000 ML IV SCH (14:03)
[2019-01-13] MEDS ORDERED: ATORVASTATIN CA80 MG PO (15:17)
[2019-01-13] MEDS ORDERED: EMPA25TA PO (15:17)
[2019-01-13] MEDS ORDERED: METO25TA4 PO (15:17)
[2019-01-13] MEDS ORDERED: ASPI325T11 PO (15:17)
[2019-01-13] MEDS ORDERED: PRAS10TA9 PO (15:17)
[2019-01-13] MEDS ORDERED: LISI-338 PO (15:19)
--- NOTE | 2019-01-13 15:55 | NUR ---
Discharge Note: JUSTEN LANTIGUA Discharge instructions and discharge home medications reviewed with Patient/Spouse and a copy given. All questions have been answered and understanding verbalized. The following instructions and handouts were given: Chest pain, post-cath, cardiac rehab Patient discharged to Home or Self Care with Spouse via Ambulated
--- NOTE | 2019-01-13 18:52 | DS ---
DATE OF DISCHARGE: 01/13/2019 ADMITTING DIAGNOSES: 1. Non-ST elevation myocardial infarction. 2. Type 2 diabetes, out of control. 3. Hypertension. 4. High cholesterol. 5. Chronic obstructive pulmonary disease. 6. History of deep venous thrombosis. HISTORY OF PRESENT ILLNESS AND HOSPITAL COURSE: This is a 58-year-old male, who had intermittent and then unrelenting chest pain, came to Emergency Room, found to have elevated troponins. The pain completely resolved on the way to the hospital after taking 4 aspirin. The patient went to cardiac catheterization due to elevated troponin, was found to have significant coronary arteries and at least two vessels, most notably a dominant left circumflex artery, which was stented. The patient tolerated procedure well and had uncomplicated postoperative course. Followup echo showed ejection fraction greater than 55%. The patient was back to baseline without pain and plans for discharge to home were made. DISCHARGE MEDICATIONS: He was discharged on the following medications: Aspirin 325 mg daily, Jardiance 25 mg daily, lisinopril 5 mg daily, metoprolol 25 mg b.i.d., Effient 10 mg daily, atorvastatin 80 mg daily, glimepiride 4 mg b.i.d. He will follow up in family practice clinic in 1 week for review of medications and with Cardiology in 2-4 weeks. ZAY SALAS MD DR: SUNI/amy JOB#: [id number] / [id number]
[2019-01-13 23:09] LABS: HEMOGLOBIN A1C 8.8 % (4.8-5.6)
== END 2019-01-13 15:50 | disposition home or self-care (01) | DRG 247 ==
LOC: ER 09:55 → ED HOLD 11:40 → 2 NORTH 15:48
PROVIDERS: ADMIT Family Medicine; ATTEND Family Medicine
PROC: 027034Z Dilation of Coronary Artery, One Artery with Drug-eluting Intraluminal Device, Percutaneous Approach (ICD-10-PCS; principal; 2019-01-12)
PROC: 4A023N7 Measurement of Cardiac Sampling and Pressure, Left Heart, Percutaneous Approach (ICD-10-PCS; 2019-01-12)
PROC: B2151ZZ Fluoroscopy of Left Heart using Low Osmolar Contrast (ICD-10-PCS; 2019-01-12)
PROC: B2111ZZ Fluoroscopy of Multiple Coronary Arteries using Low Osmolar Contrast (ICD-10-PCS; 2019-01-12)
DX: I21.4 Non-ST elevation (NSTEMI) myocardial infarction (principal); I25.10 Atherosclerotic heart disease of native coronary artery without angina pectoris; E11.65 Type 2 diabetes mellitus with hyperglycemia; E78.00 Pure hypercholesterolemia, unspecified; E78.5 Hyperlipidemia, unspecified; F17.210 Nicotine dependence, cigarettes, uncomplicated; I10 Essential (primary) hypertension; J44.9 Chronic obstructive pulmonary disease, unspecified; K21.9 Gastro-esophageal reflux disease without esophagitis; M19.90 Unspecified osteoarthritis, unspecified site; Z80.0 Family history of malignant neoplasm of digestive organs; Z80.1 Family history of malignant neoplasm of trachea, bronchus and lung; Z80.3 Family history of malignant neoplasm of breast; Z82.49 Family history of ischemic heart disease and other diseases of the circulatory system; Z86.718 Personal history of other venous thrombosis and embolism; Z83.3 Family history of diabetes mellitus; Z90.49 Acquired absence of other specified parts of digestive tract; Z88.0 Allergy status to penicillin; Z88.8 Allergy status to other drugs, medicaments and biological substances; Z71.6 Tobacco abuse counseling; Z79.899 Other long term (current) drug therapy; Z79.02 Long term (current) use of antithrombotics/antiplatelets
CPT/HCPCS: 36415; 71046; 80048; 80053; 80061; 80307; 81001; 82962; 83036; 83690; 83880; 84484; 85025; 85610; 92928; 93005; 93306; 93458; 99152; 99153; 99406; C1713; C1725; C1769; C1892; J0583; J1644; J1815; J2250; J3010; J3490; Q9967; 99285-25